=== PATIENT | female | born 1990 | race American Indian/Alaskan Native ===

== ENCOUNTER 2016-03-01 09:22 | Emergency (ER) | payer SELFPAY ==
[2016-03-01 09:32] VITALS: BP 106/76
== END 2016-03-01 12:10 | disposition left against medical advice (07) ==
LOC: ED 09:22
DX: M54.9 Dorsalgia, unspecified (principal); Z53.21 Procedure and treatment not carried out due to patient leaving prior to being seen by health care provider

== ENCOUNTER 2016-04-16 06:09 | Emergency (ER) | payer OTHER ==
[2016-04-16] MEDS ORDERED: NACL 0.9% 1000 ML 1,000 ML ONE (06:19)
[2016-04-16] MEDS ORDERED: REGLAN ONE (06:19)
[2016-04-16] MEDS ORDERED: ATIVAN ONE (06:22)
[2016-04-16] MEDS ORDERED: ATIVAN IV ONE (06:29)
[2016-04-16] MEDS ORDERED: REGLAN IV ONE (06:29)
[2016-04-16] MEDS ORDERED: NACL 0.9% 1000 ML 1,000 ML IV ONE (06:30)
[2016-04-16 06:55] LABS: Basophils % (Auto) 0.5 % (0.0-1.8); Eosinophils % (Auto) 0.5 % (0.0-4.3); Hemoglobin 12.6 gm/dl (10.1-14.3); Mean Corpuscular HGB Conc 32 % (30-34); Mean Corpuscular Hemoglobin 28 pg (28-32); Mean Corpuscular Volume 87 fl (79-97); Platelet Count 257 K/mm3 (140-440); Red Blood Count 4.47 M/mm3 (3.65-5.03); Red Cell Distribution Width 13.2 % (13.2-15.2); White Blood Count 6.5 K/mm3 (4.5-11.0)
[2016-04-16 07:41] LABS: Anion Gap 22 mmol/L; BUN/Creatinine Ratio 14.44; Blood Urea Nitrogen 13 mg/dL (7-17); Calcium 9.1 mg/dL (8.4-10.2); Carbon Dioxide 19 mmol/L (22-30); Chloride 104.2 mmol/L (98-107); Glucose 71 mg/dL (65-100); Potassium 3.9 mmol/L (3.6-5.0); Sodium 141 mmol/L (137-145)
--- NOTE | 2016-04-16 07:52 | Cat Scan Report ---
FINAL REPORT PROCEDURE: CT HEAD/BRAIN WO CON TECHNIQUE: Computerized tomography of the head was performed without contrast material. HISTORY: ams COMPARISON: No prior studies are available for comparison. FINDINGS: Skull and scalp: Normal. Paranasal sinuses: Normal. Ventricles and subarachnoid spaces: Normal. Cerebrum: No evidence of hemorrhage, acute infarction or mass . Cerebellum and brainstem: No evidence of hemorrhage, acute infarction or mass. Vasculature: Normal. Comments: None. IMPRESSION: Normal Examination
[2016-04-16 08:23] LABS: Urine Drugs of Abuse Note Disclamer
[2016-04-16 08:39] LABS: Bilirubin,Urine Negative (Negative); Blood,Urine Negative (Negative); Ketones,Urine Trace mg/dL (Negative); Nitrite,Urine Negative (Negative); Urobilinogen,Urine < 2.0 mg/dL (<2.0)
[2016-04-16 08:40] LABS: Leukocyte Esterase,Urine Negative (Negative); Mucus,Urine Few /HPF
--- NOTE | 2016-04-16 11:25 | Emergency Department Report ---
HPI - General Chief Complaint: Altered Mental Status Time Seen by Provider: 04/16/16 06:41 - HPI HPI: Chief complaint: Nausea vomiting altered mental status HPI: Patient is a 25-year-old female is been out drinking all night and smoked a joint and then began having vomiting and altered mental status. According to patient's boyfriend she does not drink on a regular basis and does not do any hard drugs other than marijuana. Unable to get any history from the patient. Mode of arrival: [private car] Source: The patient's boyfriend Began: Prior to admission Duration: See above Context: See above Quality: Unable to assess Severity: Unable to assess Improved with: Unable to assess Worsened with: Unable to assess Associated signs and symptoms: Vomiting ED Past Medical Hx - Past Medical History Previous Medical History?: No - Surgical History Past Surgical History?: No - Social History Smoking Status: Unknown if ever smoked - Medications Home Medications: Home Medications Medication Instructions Recorded Confirmed Last Taken Type No Known Home Medications [No 11/09/15 11/09/15 Unknown History Reported Home Medications] ED Review of Systems ROS: Stated complaint: UNRESPONSIVE Other details as noted in HPI Comment: Unobtainable due to pts medical conditions (secondary to patient's intoxication) Physical Exam - Physical Exam Vital Signs: Vital Signs 04/16/16 04/16/16 04/16/16 06:11 06:36 07:18 Temperature 98.3 F Pulse Rate 95 H 84 Respiratory 14 24 18 Rate Blood Pressure 111/83 Blood Pressure 93/60 [Left] O2 Sat by Pulse 97 98 97 Oximetry 04/16/16 04/16/16 04/16/16 08:07 08:15 08:31 Temperature Pulse Rate 76 77 83 Respiratory 17 13 16 Rate Blood Pressure 93/61 Blood Pressure [Left] O2 Sat by Pulse 99 99 100 Oximetry 04/16/16 04/16/16 08:35 08:39 Temperature Pulse Rate 90 Respiratory 18 Rate Blood Pressure Blood Pressure 80/47 [Left] O2 Sat by Pulse 100 Oximetry Physical Exam: GENERAL: The patient is a thin -Marshallese female in no acute distress. Patient actively retching and agitated. HEENT: Normocephalic. Atraumatic. Extraocular motions are intact. Patient has moist mucous membranes. NECK: Supple. No meningitic signs are noted. There is no adenopathy noted. CHEST/LUNGS: Clear to auscultation. There is no respiratory distress noted. HEART/CARDIOVASCULAR: Regular. There is no tachycardia. There is no gallop rub or murmur. ABDOMEN: Abdomen is soft, nontender. Patient has normal bowel sounds. There is no abdominal distention. SKIN: There is no rash. There is no edema. There is no diaphoresis. NEURO: The patient is lethargic. Patient moves all extremities MUSCULOSKELETAL: There is no tenderness or deformity. There is no evidence of acute injury. ED Course Vital Signs 04/16/16 04/16/16 04/16/16 06:11 06:36 07:18 Temperature 98.3 F Pulse Rate 95 H 84 Respiratory 14 24 18 Rate Blood Pressure 111/83 Blood Pressure 93/60 [Left] O2 Sat by Pulse 97 98 97 Oximetry 04/16/16 04/16/16 04/16/16 08:07 08:15 08:31 Temperature Pulse Rate 76 77 83 Respiratory 17 13 16 Rate Blood Pressure 93/61 Blood Pressure [Left] O2 Sat by Pulse 99 99 100 Oximetry 04/16/16 04/16/16 08:35 08:39 Temperature Pulse Rate 90 Respiratory 18 Rate Blood Pressure Blood Pressure 80/47 [Left] O2 Sat by Pulse 100 Oximetry - Reevaluation(s) Reevaluation #1: 04/16/16 11:24 Patient was given 10 mg of IV Reglan, 0.5 mg IV Ativan and a liter of normal saline with improvement. CT scan of the head was negative and laboratory results show patient is an alcohol level of 0.14. Reevaluation of the patient shows her sleeping comfortably and although she will not speak to me she does answer questions yes and no. Will continue to observe 04/16/16 12:05 Patient now awake and communicating. Will allow to go home with her boyfriend. ED Medical Decision Making - Lab Data Result diagrams: 04/16/16 06:35 04/16/16 06:35 Laboratory Tests 04/16/16 04/16/16 04/16/16 06:35 06:35 Unknown HCG, Qual Negative U Marijuana (THC) Screen Presumptive positive Plasma/Serum Alcohol 0.14 H - Radiology Data Radiology results: report reviewed (CT head within normal limits.) Critical care attestation.: If time is entered above; I have spent that time in minutes in the direct care of this critically ill patient, excluding procedure time. ED Disposition Clinical Impression: Alcohol intoxication Qualifiers: Complication of substance-induced condition: with unspecified complication Qualified Code(s): F10.129 - Alcohol abuse with intoxication, unspecified Disposition: DISCHARGED TO HOME OR SELFCARE Is pt being admited?: No Does the pt Need Aspirin: No Condition: Stable Instructions: Alcohol Intoxication (ED) Referrals: PRIMARY CARE, [Primary Care Provider] - 3-5 Days Time of Disposition: 12:05
[2016-04-16 11:36] VITALS: BP 93/59
[2016-04-16] MEDS ORDERED: ZOFRAN ONE (12:05)
[2016-04-16] MEDS ORDERED: ZOFRAN IV ONE (17:55)
== END 2016-04-16 13:00 | disposition home or self-care (01) ==
LOC: ED 06:09
DX: F10.129 Alcohol abuse with intoxication, unspecified (principal)
CPT/HCPCS: 36415; 70450; 80048; 80307; 81001; 84703; 85025; 96361; 96374; 96375; 99284; G0480; J2060; J2405; J2765; J7030; 80320

== ENCOUNTER 2016-05-27 19:24 | Emergency (ER) | payer SELFPAY ==
[2016-05-27 20:20] VITALS: BP 126/85
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
[2016-05-28] MEDS ORDERED: FLEXERIL PO ONE (00:41)
[2016-05-28] MEDS ORDERED: TORADOL IM ONE (00:41)
[2016-05-28] MEDS ORDERED: TRIPLE ANTIBIOTIC TP ONE (00:42)
== END 2016-05-28 01:15 | disposition home or self-care (01) ==
LOC: ED 19:24
DX: S60.10XA Contusion of unspecified finger with damage to nail, initial encounter (principal); F17.200 Nicotine dependence, unspecified, uncomplicated; Y08.89XA Assault by other specified means, initial encounter; Y93.9 Activity, unspecified; Y92.9 Unspecified place or not applicable; Y99.9 Unspecified external cause status
CPT/HCPCS: 96372; 99282; J1885; A6250

== ENCOUNTER 2016-08-26 20:19 | Emergency (ER) | payer SELFPAY ==
[2016-08-26 21:17] LABS: Basophils % (Auto) 1.1 % (0.0-1.8); Eosinophils % (Auto) 1.2 % (0.0-4.3); Hematocrit 38.7 % (30.3-42.9); Hemoglobin 12.8 gm/dl (10.1-14.3); Mean Corpuscular HGB Conc 33 % (30-34); Mean Corpuscular Hemoglobin 29 pg (28-32); Mean Corpuscular Volume 87 fl (79-97); Platelet Count 245 K/mm3 (140-440); Red Blood Count 4.44 M/mm3 (3.65-5.03); Red Cell Distribution Width 13.2 % (13.2-15.2); White Blood Count 6.6 K/mm3 (4.5-11.0)
[2016-08-26 21:25] LABS: Anion Gap 13 mmol/L; Blood Urea Nitrogen 9 mg/dL (7-17); Calcium 9.3 mg/dL (8.4-10.2); Carbon Dioxide 28 mmol/L (22-30); Glucose 113 mg/dL (65-100); Potassium 3.6 mmol/L (3.6-5.0); Sodium 139 mmol/L (137-145)
[2016-08-26 21:59] LABS: Bilirubin,Urine NEG (Negative); Blood,Urine NEG (Negative); Ketones,Urine NEG (Negative); Leukocyte Esterase,Urine NEG (Negative); Mucus,Urine FEW /HPF; Nitrite,Urine NEG (Negative); Protein,Urine <15 mg/dL mg/dL (Negative); Urobilinogen,Urine < 2.0 mg/dL (<2.0); WBC,Urine < 1.0 /HPF (0.0-6.0)
[2016-08-27] MEDS ORDERED: NACL 0.9% 1000 ML 1,000 ML IV ONE (06:21)
--- NOTE | 2016-08-27 06:25 | Emergency Department Report ---
HPI - General Chief Complaint: Abdominal Pain Time Seen by Provider: 08/27/16 06:11 - HPI HPI: This is a 26-year-old Afro-Turkish female who presents to the emergency department from home with a complaint of a 2 week history of intermittent left sided abdominal pain. She denies any nausea, vomiting, fever, dysuria, vaginal bleeding or discharge. She is not taken anything for her pain prior to presentation. No recent travel or sick contacts at home. She denies any past medical history. She does not have a primary care physician. She denies any known aggravating or alleviating factors. ED Past Medical Hx - Past Medical History Previous Medical History?: No - Surgical History Past Surgical History?: No - Social History Smoking Status: Current Every Day Smoker Substance Use Type: None - Medications Home Medications: Home Medications Medication Instructions Recorded Confirmed Last Taken Type metroNIDAZOLE [Flagyl] 500 mg PO Q12HR #14 tab 08/27/16 Unknown Rx ED Review of Systems ROS: Stated complaint: ABD PAIN Other details as noted in HPI Comment: All other systems reviewed and negative Constitutional: denies: chills, fever Eyes: denies: eye pain, eye discharge, vision change ENT: denies: ear pain, throat pain Respiratory: denies: cough, shortness of breath, wheezing Cardiovascular: denies: chest pain, palpitations Gastrointestinal: abdominal pain. denies: nausea, vomiting Genitourinary: denies: urgency, dysuria, discharge Musculoskeletal: denies: back pain, joint swelling, arthralgia Skin: denies: rash, lesions Neurological: denies: headache, weakness, paresthesias Physical Exam - Physical Exam Vital Signs: Vital Signs 08/26/16 08/27/16 08/27/16 20:39 01:09 02:16 Temperature 98.7 F 98.1 F Pulse Rate 76 58 L Respiratory 18 12 Rate Blood Pressure 104/68 101/65 Blood Pressure [Right] O2 Sat by Pulse 100 100 100 Oximetry 08/27/16 08/27/16 03:40 05:34 Temperature Pulse Rate 70 65 Respiratory 17 15 Rate Blood Pressure Blood Pressure 95/58 97/56 [Right] O2 Sat by Pulse 99 99 Oximetry Physical Exam: GENERAL: The patient is well-developed well-nourished. HEENT: Normocephalic. Atraumatic. Extraocular motions are intact. Patient has moist mucous membranes. Pupils equal reactive to light bilaterally. NECK: Supple. Trachea is midline. CHEST/LUNGS: Clear to auscultation. There is no respiratory distress noted. HEART/CARDIOVASCULAR: Regular. There is no tachycardia. There is no gallop rub or murmur. ABDOMEN: Abdomen is soft. There is some left-sided abdominal tenderness to palpation. No guarding or rebound tenderness. No peritoneal signs. Patient has normal bowel sounds. There is no abdominal distention. SKIN: Skin is warm and dry. NEURO: The patient is awake, alert, and oriented. The patient is cooperative. The patient has no focal neurologic deficits. The patient has normal speech. MUSCULOSKELETAL: There is no tenderness or deformity. There is no limitation range of motion. There is no evidence of acute injury.. : There is no vaginal or labial lesions seen. No foreign body seen in the vagina. There is some moderately viscous malodorous discharge seen in the vaginal vault. ED Course Vital Signs 08/26/16 08/27/16 08/27/16 20:39 01:09 02:16 Temperature 98.7 F 98.1 F Pulse Rate 76 58 L Respiratory 18 12 Rate Blood Pressure 104/68 101/65 Blood Pressure [Right] O2 Sat by Pulse 100 100 100 Oximetry 08/27/16 08/27/16 03:40 05:34 Temperature Pulse Rate 70 65 Respiratory 17 15 Rate Blood Pressure Blood Pressure 95/58 97/56 [Right] O2 Sat by Pulse 99 99 Oximetry ED Medical Decision Making - Lab Data Result diagrams: 08/26/16 20:53 08/26/16 20:53 - Radiology Data Radiology results: report reviewed, image reviewed interpreted by me: Abdominal x-ray does not show any acute process. Nonobstructive nonspecific bowel gas. PROCEDURE: CT ABDOMEN PELVIS W CON TECHNIQUE: Computerized axial tomography of the abdomen and pelvis was performed after the IV injection of iodinated nonionic contrast. HISTORY: Abd pain COMPARISON: None FINDINGS: Visualized lower thorax: No significant abnormality. Liver: Normal size and attenuation. Spleen: Normal size and attenuation. Gallbladder and biliary system: Normal. Pancreas: Normal. Adrenals: Normal. Kidneys: Normal. GI tract: Limited in evaluation without oral contrast. No bowel obstruction or gross focal bowel abnormality. Appendix not definitely seen. Lymph nodes and mesentery: Normal. Vasculature: Normal. Bladder: Normal. Reproductive organs: 3.5 x 3.5 centimeter right adnexal region cyst. Sub centimeter left ovarian follicles. Decreased density centrally within the uterus likely reflective of phase of menstrual cycle. Peritoneum: No free fluid. Musculoskeletal structures: No significant abnormality. Other: None. IMPRESSION: 3.5 x 3.5 centimeter right adnexal cyst as well as sub centimeter follicles of the left ovary. Decreased density within the uterus likely reflective of phase of menstrual cycle. Correlate clinically. Small free fluid in the pelvis is a nonspecific finding possibly reflective of cyst rupture. Insure negative test as well as consider pelvic ultrasound with Doppler for further evaluation. - Medical Decision Making 26-year-old presents with 2 week history of left-sided abdominal pain. At first she did not have any vaginal complaints to me but had previously mentioned possible retention of a tampon and/or some discharge through triage. Labs are unremarkable including no leukocytosis, electrolyte abnormalities, renal insufficiency and she has normal belly labs. Urinalysis does not show any urinary tract infection and the patient is not . Abdominal x-ray does not show any acute process. A CT of the abdomen and pelvis does not show any acute process other than complex right-sided adnexal cyst. Radiology suggested confirmation that the patient is not which she does not appear to be as there is a negative urine qualitative and a negative serum quantitative . The pelvic exam was done and discharge was found that was tested and positive for bacterial vaginosis. Patient will be started on Flagyl. She will either call back or will be called in 2-3 days with the results of the gonorrhea and/or Chlamydia. Vital signs stable throughout her ED course including being afebrile. She was given a referral for both primary care and [facility]. She will return to the ER with any worsening of her symptoms or any acute distress. - Differential Diagnosis ovarian cyst, , colitis, diverticulitis Critical Care Time: No Critical care attestation.: If time is entered above; I have spent that time in minutes in the direct care of this critically ill patient, excluding procedure time. ED Disposition Clinical Impression: Bacterial vaginosis, Adnexal cyst Abdominal pain Qualifiers: Abdominal location: unspecified location Qualified Code(s): R10.9 - Unspecified abdominal pain Disposition: - TO HOME OR SELFCARE Is pt being admited?: No Condition: Stable Instructions: Bacterial Vaginosis (ED), Abdominal Pain (ED) Additional Instructions: Please follow-up with a primary care physician and [facility] as soon as possible. Return to the emergency department with any worsening of your symptoms or any acute distress. You have been started on Flagyl/metronidazole for your bacterial vaginosis infection. You should not consume any alcohol, no matter the quantity, while taking this medication as there is a strong side effects that will cause you to have extreme nausea, vomiting and abdominal discomfort. The results of your gonorrhea/chlamydia test should be back in 2-3 days. Feel free to call for the results if you do not hear from us. Return to the emergency department with any worsening of your symptoms or any acute distress. Prescriptions: metroNIDAZOLE [Flagyl] 500 mg PO Q12HR #14 tab Referrals: PRIMARY CAREMD [Primary Care Provider] - 3-5 Days RAVI GALLEGO MD [Staff Physician] - 3-5 Days [facility] [Outside] - 3-5 Days [facility] [Provider Group] - 3-5 Days [facility] [Provider Group] - 3-5 Days Forms: STI Treatment and Prevention Time of Disposition: 10:58
--- NOTE | 2016-08-27 08:25 | Cat Scan Report ---
FINAL REPORT PROCEDURE: CT ABDOMEN PELVIS W CON TECHNIQUE: Computerized axial tomography of the abdomen and pelvis was performed after the IV injection of iodinated nonionic contrast. HISTORY: Abd pain COMPARISON: None FINDINGS: Visualized lower thorax: No significant abnormality. Liver: Normal size and attenuation. Spleen: Normal size and attenuation. Gallbladder and biliary system: Normal. Pancreas: Normal. Adrenals: Normal. Kidneys: Normal. GI tract: Limited in evaluation without oral contrast. No bowel obstruction or gross focal bowel abnormality. Appendix not definitely seen. Lymph nodes and mesentery: Normal. Vasculature: Normal. Bladder: Normal. Reproductive organs: 3.5 x 3.5 centimeter right adnexal region cyst. Sub centimeter left ovarian follicles. Decreased density centrally within the uterus likely reflective of phase of menstrual cycle. Peritoneum: No free fluid. Musculoskeletal structures: No significant abnormality. Other: None. IMPRESSION: 3.5 x 3.5 centimeter right adnexal cyst as well as sub centimeter follicles of the left ovary. Decreased density within the uterus likely reflective of phase of menstrual cycle. Correlate clinically. Small free fluid in the pelvis is a nonspecific finding possibly reflective of cyst rupture. Insure negative test as well as consider pelvic ultrasound with Doppler for further evaluation.
--- NOTE | 2016-08-27 09:42 | XRay Report ---
ABDOMINAL SERIES 2 VIEWS: 08/26/16 20:19:00 CLINICAL: Abdominal pain. FINDINGS: Supine and upright views demonstrate a normal bowel gas pattern with a moderate volume of stool in the colon. No distended small bowel and no air-fluid levels. No pneumoperitoneum. No mass or suspicious calcifications. The bones and soft tissues are normal. IMPRESSION: Negative abdomen.
[2016-08-27 12:59] VITALS: BP 110/64
== END 2016-08-27 10:45 | disposition home or self-care (01) ==
LOC: ED 20:19
DX: N76.0 Acute vaginitis (principal); N85.8 Other specified noninflammatory disorders of uterus; R10.9 Unspecified abdominal pain; F17.200 Nicotine dependence, unspecified, uncomplicated
CPT/HCPCS: 36415; 74020; 74177; 80048; 81001; 84702; 84703; 85025; 87210; 87591; 96360; 96361; 99285; J7030; Q9967

== ENCOUNTER 2018-09-13 16:35 | Emergency (ER) | payer SELFPAY ==
[2018-09-13 16:56] VITALS: BP 109/77
--- NOTE | 2018-09-13 16:57 | Event Note ---
ED Screening Note Date of service: 09/13/18 Time: 16:55 ED Screening Note: 28 y/o female comes for nausea and breast soreness. Concern for . LMP 07/21/18 This initial assessment/diagnostic orders/clinical plan/treatment(s) is/are subject to change based on patients health status, clinical progression and re- assessment by fellow clinical providers in the ED. Further treatment and workup at subsequent clinical providers discretion. Patient/guardian urged not to elope from the ED as their condition may be serious if not clinically assessed and managed. Initial orders include:
[2018-09-13 18:00] LABS: Bilirubin,Urine NEG (Negative); Blood,Urine NEG (Negative); Color,Urine Straw (Yellow); Mucus,Urine FEW /HPF; Protein,Urine <15 mg/dL mg/dL (Negative); Urobilinogen,Urine < 2.0 mg/dL (<2.0)
== END 2018-09-13 20:00 | disposition left against medical advice (07) ==
LOC: ED 16:35
DX: R42 Dizziness and giddiness (principal); Z53.21 Procedure and treatment not carried out due to patient leaving prior to being seen by health care provider
CPT/HCPCS: 36415; 81001; 84702